=== PATIENT | female | born 1995 | race Two or more races ===

== ENCOUNTER 2018-08-22 21:10 | Emergency (ER) | payer MEDICAID ==
[~2018-08-22] VITALS: Ht 160 cm; Wt 99.8 kg
[2018-08-22] MEDS ORDERED: ALBUTEROL SULF8.5 GM INH (21:24)
[2018-08-22 21:45] VITALS: BP 128/79
--- NOTE | 2018-08-22 21:45 | NUR ---
ED Nurse Note: PATIENT AMBULATED TO ED C/O WITH FLU LIKE SYMPTOMS X2 WEEKS. FEVER AT 101.7. ERMD ON BEDSIDE. PO TYLENOL GIVEN. PT TOLERATED WELL. WILL CONTINUE TO MONITOR.
[2018-08-22] MEDS ORDERED: PREDNISONE20 MG ORAL (21:53)
[2018-08-22] MEDS ORDERED: AUGMENTIN 875-1 EAC1 ORAL (21:53)
[2018-08-22] MEDS ORDERED: IBUPROFEN600 MG ORAL (21:53)
[2018-08-22] MEDS ORDERED: PSEUDOEPHEDRINE60 MG PO (21:53)
--- NOTE | 2018-08-22 21:54 | Emergency Room Report ---
History of Present Illness General Chief Complaint: Flu Like Symptoms Source: Patient Present Illness HPI Is a 23-year-old female with a history of asthma. She presents with chief complaint of cough, headache, fever and onset for last 2 weeks. She was getting better but then spiked a fever today. No nausea no vomiting. Pain is throbbing in nature. 8 out of 10. Worse with coughing. Coughing is productive of sputum and occasional specks of blood. Nose is congested. Better with her inhaler. No other complaint. Allergies: Coded Allergies: No Known Allergies (Unverified , 08/22/18) Patient History Past Medical History: see triage record, old chart reviewed, asthma Past Surgical History: none Pertinent Family History: none Social History: Denies: smoking Last Menstrual Period: 08/12/18 Now: No Immunizations: other Reviewed Nursing Documentation: PMH: Agreed; PSxH: Agreed Nursing Documentation-PMH Past Medical History: No History, Except For Hx Asthma: Yes Review of Systems Constitutional: Reports: chills, fever, malaise Eye: Reports: nose congestion; Denies: eye pain, blurred vision ENT: Reports: throat pain; Denies: ear pain, nose congestion, throat swelling Respiratory: Reports: cough, shortness of breath Cardiovascular: Denies: chest pain, palpitations Gastrointestinal: Denies: abdominal pain, diarrhea, nausea, vomiting Musculoskeletal: Denies: back pain, joint pain Skin: Denies: rash Neurological: Denies: headache, numbness Endocrine: Denies: increased thirst, increased urine Hematologic/Lymphatic: Denies: easy bruising All Other Systems: negative except mentioned in HPI Physical Exam Vital Signs Date Time Temp Pulse Resp B/P (MAP) Pulse Ox O2 Delivery O2 Flow Rate FiO2 08/22/18 21:20 101.7 106 22 128/79 92 Room Air vitals with fever Sp02 EP Interpretation: reviewed, normal General Appearance: well appearing, no apparent distress, alert Head: normocephalic, atraumatic Eyes: bilateral eye PERRL, bilateral eye EOMI ENT: hearing grossly normal, pharyngeal erythema, other - Right TM is erythematous with meningitis. Neck: full range of motion, supple, no meningismus Respiratory: chest non-tender, lungs clear, normal breath sounds Cardiovascular #1: regular rate, rhythm, no murmur Gastrointestinal: normal bowel sounds, non tender, no mass, no organomegaly, no bruit, non-distended Musculoskeletal: back normal, gait/station normal, normal range of motion Psychiatric: mood/affect normal Skin: warm/dry Medical Decision Making Diagnostic Impression: Primary Impression: Influenza-like symptoms Additional Impressions: Otitis media, right Qualified Codes: H66.91 - Otitis media, unspecified, right ear Asthma Qualified Codes: J45.20 - Mild intermittent asthma, uncomplicated ER Course Patient with viral symptoms with possible secondary bacterial infection. She does have an otitis media. No evidence of meningitis, sepsis, pneumonia or other serious bacterial infection. We'll discharge home. Last Vital Signs Date Time Temp Pulse Resp B/P (MAP) Pulse Ox O2 Delivery O2 Flow Rate FiO2 08/22/18 21:20 101.7 106 22 128/79 92 Room Air Status: improved Disposition: HOME, SELF-CARE Condition: Stable Scripts Pseudoephedrine Hcl* (SUDAFED*) 60 Mg Tablet 60 MG PO Q6H, #30 TAB Prov: Blayne Rios MD 08/22/18 Prednisone* (PREDNISONE*) 20 Mg Tablet 40 MG ORAL DAILY, #10 TAB Prov: Blayne Rios MD 08/22/18 Ibuprofen* (MOTRIN*) 600 Mg Tablet 600 MG ORAL THREE TIMES A DAY, #30 TAB 0 Refills Prov: Blayne Rios MD 08/22/18 Amoxicillin/Potassium Clav 875-125* (AUGMENTIN 875-125 TABLET*) 1 Each Tablet 1 TAB ORAL TWICE A DAY, #14 TAB Prov: Blayne Rios MD 08/22/18 Additional Instructions: Rest. Increase fluids. Continue with your inhaler. Follow-up with your DrEthan in 3-7 days for recheck. Return if worse. Blayne Rios MD Aug 22, 2018 21:54
[2018-08-22 22:10] VITALS: BP 128/79
--- NOTE | 2018-08-22 22:10 | NUR ---
ER DISCHARGE NOTE: Patient is cleared to be discharged per ERMD, pt is aox4, on room air, with stable vital signs. pt was given dc and prescription instructions, pt was able to verbalize understanding, pt id band removed without complications. pt is able to ambulate with steady gait. pt took all belongings.
== END 2018-08-22 22:10 | disposition home or self-care (01) ==
LOC: EMR 22:00
DX: H66.91 Otitis media, unspecified, right ear (principal); R05 Cough; J45.20 Mild intermittent asthma, uncomplicated
CPT/HCPCS: 99282

== ENCOUNTER 2019-03-17 08:10 | Emergency (ER) | payer MEDICAID ==
[~2019-03-17] VITALS: Ht 160 cm; Wt 95.3 kg
[~2019-03-17 08:10] MED LIST: ALBUTEROL SULF8.5 GM INH; AUGMENTIN 875-1 EAC1 ORAL; IBUPROFEN600 MG ORAL; PREDNISONE20 MG ORAL; PSEUDOEPHEDRINE60 MG PO
[2019-03-17 08:34] VITALS: BP 113/80
--- NOTE | 2019-03-17 08:37 | Emergency Room Report ---
History of Present Illness General Chief Complaint: Eye Problems Source: Patient Present Illness HPI Patient presents with increased redness and crustiness and itching of bilateral eyes. A splint was applied by the mechanical service technician. Position was excellent and neurovascular is normal as checked by me. Worsening over the last 2 to 3 days. She is also had a sore throat that developed and a cough. She has a history of asthma and has used her inhaler last night. There is no chest pain. She denies any fevers or aches. She was seen by another doctor and he gave her prescription for saline drops. She denies any change in her vision. No chills, chest pain, palpitations, nausea, vomiting, diarrhea, dysuria, abdominal pain, joint pain, depression, anxiety, dizziness, headache. Last menstruation normal ended yesterday. Allergies: Coded Allergies: No Known Allergies (Unverified , 08/22/18) Patient History Past Medical History: see triage record, asthma Social History: Denies: smoking Social History Narrative retail Last Menstrual Period: 03/12/19 Reviewed Nursing Documentation: PMH: Agreed; PSxH: Agreed Nursing Documentation-PMH Past Medical History: No History, Except For Hx Asthma: Yes Review of Systems All Other Systems: negative except mentioned in HPI Physical Exam Vital Signs Date Time Temp Pulse Resp B/P (MAP) Pulse Ox O2 Delivery O2 Flow Rate FiO2 03/17/19 08:19 98.2 73 18 113/80 (91) 96 Room Air Sp02 EP Interpretation: reviewed, normal General Appearance: well appearing, no apparent distress, GCS 15 Head: normocephalic Eyes: bilateral eye PERRL, bilateral eye EOMI, bilateral eye Scleral Injection , bilateral eye other - beige crustiness bilat ENT: no angioedema, moist mucus membranes, pharyngeal erythema Cardiovascular #1: regular rate, rhythm Gastrointestinal: normal inspection Genitourinary: no CVA tenderness Musculoskeletal: gait/station normal Neurologic: alert, oriented x3, grossly normal Psychiatric: mood/affect normal Skin: no rash Lymphatic: other - No preauricular nodes Medical Decision Making Diagnostic Impression: Primary Impression: Conjunctivitis Qualified Codes: H10.33 - Unspecified acute conjunctivitis, bilateral Additional Impressions: URI (upper respiratory infection) Qualified Codes: J06.9 - Acute upper respiratory infection, unspecified Bronchospasm ER Course Patient presents with worsening eye irritation. Differential includes bacterial versus viral conjunctivitis. She also has sore throat with bronchospasm and mild cough. The combination of this suggests that this is a viral process. However the plan is to cover the eyes with antibiotic eyedrops along with symptomatic treatment. I warned the patient that she is contagious at this time. She feels she does not need a breathing treatment at this time and can control her bronchospasm on her own. She is stable for outpatient observation and treatment. Last Vital Signs Date Time Temp Pulse Resp B/P (MAP) Pulse Ox O2 Delivery O2 Flow Rate FiO2 03/17/19 08:34 98.2 18 113/80 96 Room Air 03/17/19 08:19 73 Status: improved Disposition: HOME, SELF-CARE Condition: Improved Scripts Naphazoline Hcl/Pheniramine (OPCON-A EYE DROPS) 15 Ml Drops 2 DROP OP Q6HR PRN for itching, #10 ML Prov: Brock Christopher MD 03/17/19 Sulfacetamide Sodium (BLEPH-10) 5 Ml Drops 2 DROP OP Q6HR, #10 ML Prov: Brock Christopher MD 03/17/19 Brock Christopher MD Mar 17, 2019 08:37
[2019-03-17] MEDS ORDERED: BLEPH-105 ML OP (08:43)
[2019-03-17] MEDS ORDERED: OPCON-A EYE DRO15 ML OP (08:43)
== END 2019-03-17 08:50 | disposition home or self-care (01) ==
LOC: EMR 08:45
DX: H10.9 Unspecified conjunctivitis (principal); J06.9 Acute upper respiratory infection, unspecified; J45.909 Unspecified asthma, uncomplicated
CPT/HCPCS: 99282

== ENCOUNTER 2019-05-01 20:44 | Emergency (ER) | payer MEDICAID ==
[~2019-05-01] VITALS: Ht 160 cm; Wt 93.0 kg
[~2019-05-01 20:44] MED LIST changes: +BLEPH-105 ML OP; +OPCON-A EYE DRO15 ML OP
[2019-05-01 20:55] VITALS: BP 120/79
--- NOTE | 2019-05-01 20:55 | NUR ---
ED Nurse Note: patient ambulated to ed c/o asthma attack x 3 week. patient reports worsening symptoms x1 week.
--- NOTE | 2019-05-01 21:16 | NUR ---
ED Nurse Note: RT AT BEDSIDE
[2019-05-01] MEDS: Albuterol ud Inhalation HHN SCH ×3 (21:24→22:03)
[2019-05-01] MEDS: Ipratropium 0.02% Inh Soln 2.5ml UD HHN SCH ×3 (21:24→22:03)
[2019-05-01] MEDS ORDERED: PREDNISONE20 MG ORAL (22:21)
[2019-05-01] MEDS ORDERED: ALBUTEROL SULF8.5 GM INH (22:21)
[2019-05-01] MEDS ORDERED: ALBUTEROL2.5 MG/3 M HHN (22:21)
--- NOTE | 2019-05-01 22:26 | NUR ---
ER DISCHARGE NOTE: Patient is cleared to be discharged per ERMD, pt is aox4, on room air, with stable vital signs. pt was given dc and prescription instructions, pt was able to verbalize understanding, pt id band removed. pt is able to ambulate with steady gait is accompanied by boyfriend. pt took all belongings.
--- NOTE | 2019-05-01 23:12 | Emergency Room Report ---
History of Present Illness General Chief Complaint: Asthma Source: Patient Present Illness HPI 24-year-old female presents ED for evaluation. Complaining of cough and wheezing x1 week. History of asthma. States cough is dry. Denies fevers or chills. States she is using her inhaler at home without significant improvement. Denies smoking. Denies sick contacts or recent travel. States her symptoms are triggered whenever the weather changes. No other aggravating relieving factors. Denies any other associated symptoms Allergies: Coded Allergies: No Known Allergies (Unverified , 08/22/18) Patient History Past Medical History: asthma Past Surgical History: none Pertinent Family History: none Social History: Denies: smoking, alcohol use, drug use Last Menstrual Period: 04/12/19 Now: No Immunizations: UTD Reviewed Nursing Documentation: PMH: Agreed; PSxH: Agreed Nursing Documentation-PMH Past Medical History: No History, Except For Hx Asthma: Yes Review of Systems All Other Systems: negative except mentioned in HPI Physical Exam Vital Signs Date Time Temp Pulse Resp B/P (MAP) Pulse Ox O2 Delivery O2 Flow Rate FiO2 05/01/19 20:48 98.8 100 14 120/79 (93) 94 Room Air 05/01/19 21:25 21 Sp02 EP Interpretation: reviewed, normal General Appearance: no apparent distress, alert, GCS 15, non-toxic Head: normocephalic Eyes: bilateral eye normal inspection, bilateral eye PERRL ENT: normal ENT inspection Neck: normal inspection Respiratory: decreased breath sounds, wheezing Cardiovascular #1: regular rate, rhythm, no edema Gastrointestinal: normal inspection Rectal: deferred Genitourinary: no CVA tenderness Musculoskeletal: normal inspection Neurologic: alert, motor strength/tone normal, oriented x3, sensory intact, responsive, speech normal Psychiatric: normal inspection Skin: no rash Lymphatic: normal inspection Medical Decision Making Diagnostic Impression: Primary Impression: Bronchitis ER Course Hospital Course 24-year-old female presents to ED complaining of cough, wheezing Differential diagnoses include: URI, bronchitis, asthma/COPD, pneumonia Clinical course Patient placed on stretcher. After initial history and physical I ordered prednisone and nebulizer treatment. Upon reassessment patient states cough and symptoms have improved. Findings consistent with bronchitis. I discussed findings with patient. Will discharge to home with prednisone, inhaler. Safe for discharge with close outpatient follow-up. States she has a PMD Diagnosis - bronchitis Stable and discharged home with prescriptions for Rx prednisone, albuterol. Instructed to followup with PMD. Return to ED if symptoms recur or worsen Last Vital Signs Date Time Temp Pulse Resp B/P (MAP) Pulse Ox O2 Delivery O2 Flow Rate FiO2 05/01/19 22:25 98.5 98 17 125/76 100 Room Air 21 Status: improved Disposition: HOME, SELF-CARE Condition: Stable Scripts Prednisone* (PREDNISONE*) 20 Mg Tablet 40 MG ORAL DAILY, #10 TAB Prov: Calos Frye MD 05/01/19 Albuterol Sulfate* (ALBUTEROL SULFATE HHN*) 2.5 Mg/3 Ml Vial.neb 2.5 MG HHN Q4H PRN for Shortness of Breath, #25 VIAL Prov: Calos Frye MD 05/01/19 Albuterol Sulfate* (ALBUTEROL SULFATE MDI*) 8.5 Gm Hfa.aer.ad 2 PUFF INH Q6H, #1 EA 0 Refills Prov: Calos Frye MD 05/01/19 Referrals: [facility]ERR[facility] (PCP) Patient Instructions: Acute Bronchitis, [id number] Calos Frye MD May 01, 2019 23:12
== END 2019-05-01 22:26 | disposition home or self-care (01) ==
LOC: EMR 21:02
DX: J20.9 Acute bronchitis, unspecified (principal)
CPT/HCPCS: 94640; J7512; Z7502; 99284

== ENCOUNTER 2019-05-17 06:56 | Emergency (ER) | payer MEDICAID ==
[~2019-05-17] VITALS: Ht 160 cm; Wt 95.3 kg
[~2019-05-17 06:56] MED LIST changes: +ALBUTEROL2.5 MG/3 M HHN
[2019-05-17 07:01] VITALS: BP 117/73
--- NOTE | 2019-05-17 07:11 | NUR ---
ED Nurse Note: PT FROM HOME CAME IN DUE TO FEVER, COUGHING AND SORE THROAT X 1 WEEK. AFEBRILE UPON TRIAGE 98.6. AAO X4, AMBULATORY WITH NON LABORED BREATHING.
[2019-05-17] MEDS ORDERED: Albuterol ud Inhalation HHN ONE (07:30)
[2019-05-17] MEDS ORDERED: Ipratropium 0.02% Inh Soln 2.5ml UD HHN ONE (07:30)
[2019-05-17] MEDS ORDERED: PROMETHAZINE-C118 M1 ORAL (08:22)
[2019-05-17] MEDS ORDERED: PREDNISONE20 MG ORAL (08:22)
[2019-05-17] MEDS ORDERED: TAMIFLU75 MG ORAL (08:22)
[2019-05-17 08:30] VITALS: BP 122/77
--- NOTE | 2019-05-17 08:30 | NUR ---
ER DISCHARGE NOTE: Patient is cleared to be discharged per ERMD, pt is aox4, on room air, with stable vital signs. pt was given dc and prescription instructions, pt was able to verbalize understanding, pt id band removed. pt is able to ambulate with steady gait. pt took all belongings and left with her family member.
--- NOTE | 2019-05-17 09:15 | Emergency Room Report ---
History of Present Illness General Chief Complaint: Flu Like Symptoms Source: Patient Present Illness HPI 24-year-old female presents ED for evaluation. Complaining of cough, congestion x3 days. Wheezing. History of asthma. Used her inhaler at home but states it did not help. Also states that she lost her voice. Denies fevers or chills. Denies sick contacts or recent travel. No other aggravating relieving factors. Denies any other associated symptoms Allergies: Coded Allergies: No Known Allergies (Unverified , 08/22/18) Patient History Past Medical History: asthma Past Surgical History: none Pertinent Family History: none Social History: Denies: smoking, alcohol use, drug use Last Menstrual Period: 05/10/19 Now: No Immunizations: UTD Reviewed Nursing Documentation: PMH: Agreed; PSxH: Agreed Nursing Documentation-PMH Past Medical History: No History, Except For Hx Asthma: Yes Review of Systems All Other Systems: negative except mentioned in HPI Physical Exam Vital Signs Date Time Temp Pulse Resp B/P (MAP) Pulse Ox O2 Delivery O2 Flow Rate FiO2 05/17/19 07:01 98.6 99 20 117/73 94 Room Air 05/17/19 07:33 21 Sp02 EP Interpretation: reviewed, normal General Appearance: no apparent distress, alert, GCS 15, non-toxic Head: normocephalic, atraumatic Eyes: bilateral eye normal inspection, bilateral eye PERRL ENT: hearing grossly normal, normal pharynx, no angioedema, normal voice Neck: full range of motion, supple/symm/no masses Respiratory: chest non-tender, speaking full sentences, wheezing Cardiovascular #1: regular rate, rhythm, no edema Cardiovascular #2: 2+ carotid (R), 2+ carotid (L), 2+ radial (R), 2+ radial (L) , 2+ dorsalis pedis (R), 2+ dorsalis pedis (L) Gastrointestinal: normal bowel sounds, non tender, soft, non-distended, no guarding, no rebound Rectal: deferred Genitourinary: normal inspection, no CVA tenderness Musculoskeletal: back normal, normal range of motion, gait/station normal, non- tender Neurologic: alert, motor strength/tone normal, oriented x3, sensory intact, responsive, speech normal Psychiatric: judgement/insight normal, memory normal, mood/affect normal, no suicidal/homicidal ideation Reflexes: 3+ bicep (R), 3+ bicep (L), 3+ tricep (R), 3+ tricep (L), 3+ knee (R) , 3+ knee (L) Skin: no rash Lymphatic: no adenopathy Medical Decision Making Diagnostic Impression: Primary Impression: Laryngitis Additional Impression: Influenza-like symptoms ER Course Hospital Course 24 yo F presents with cough, congestion, lost voice Differential diagnoses include: URI, bronchitis, pharyngitis, pneumonia Clinical course Patient placed on stretcher. After initial history physical exam reveals young female no acute distress. There is no pharyngeal erythema. No lymphadenopathy. Wheezing noted bilaterally. Bilateral TM unremarkable. Remainder of exam unremarkable. I ordered prednisone and nebulizer treatment. Upon reassessment patient states cough and symptoms have improved. I discussed findings with patient. Will discharge to home with prescription for prednisone, cough medication, Tamiflu. States she has inhaler at home. Safe for discharge with close outpatient follow-up. I will provide referrals Diagnosis - laryngitis, influenza like symptoms Stable and discharged home with prescriptions for Rx prednisone, promethazine/ codeine, tamiflu. Instructed to followup with PMD. Return to ED if symptoms recur or worsen Last Vital Signs Date Time Temp Pulse Resp B/P (MAP) Pulse Ox O2 Delivery O2 Flow Rate FiO2 05/17/19 08:30 98.0 95 15 122/77 100 Room Air 21 Status: improved Disposition: HOME, SELF-CARE Condition: Stable Scripts Oseltamivir Phosphate (Tamiflu) 75 Mg Capsule 75 MG ORAL TWICE A DAY for 5 Days, CAP Prov: Calos Frye MD 05/17/19 Prednisone* (PREDNISONE*) 20 Mg Tablet 40 MG ORAL DAILY, #10 TAB Prov: Calos Frye MD 05/17/19 Codeine/Promethazine Hcl* (PROMETHAZINE-CODEINE SYRUP*) 118 Ml Syrup 5 ML ORAL Q6H PRN for For Cough, #118 ML 0 Refills Prov: Calos Frye MD 05/17/19 Referrals: NON PHYSICIAN (PCP) Mar[facility] Patient Instructions: Laryngitis, [id number] aClos Frye MD May 17, 2019 09:15
== END 2019-05-17 08:30 | disposition home or self-care (01) ==
LOC: EMR 07:15
DX: J04.0 Acute laryngitis (principal); J11.1 Influenza due to unidentified influenza virus with other respiratory manifestations
CPT/HCPCS: J7512; Z7502; 99284

== ENCOUNTER 2019-07-25 07:15 | Emergency (ER) | payer MEDICAID ==
[~2019-07-25] VITALS: Ht 160 cm; Wt 95.3 kg
[~2019-07-25 07:15] MED LIST changes: +AMOXICILLIN500 MG ORAL; +PROMETHAZINE-C118 M1 ORAL; +TAMIFLU75 MG ORAL
[2019-07-25 07:21] VITALS: BP 130/74
--- NOTE | 2019-07-25 07:44 | Emergency Room Report ---
History of Present Illness General Chief Complaint: Asthma Source: Patient, Medical Record Present Illness HPI Patient is a 24-year-old female past medical history of asthma who presents to the ER complaining of asthma exacerbation. Patient states this is her third exacerbation during the winter season. She complains of wheezing and nonproductive cough. She denies any chest pain or shortness of breath. She denies any fever or chills. She states that the steroids helped the last time that this happened. She does have nebulizers at home which she has been using. She denies any recent travel. She denies any history of smoking. Patient denies any abdominal pain, nausea or vomiting. Patient states that she injured her left lower leg and that it is been in a walking boot and she has been walking every day. She went to [place] before coming here today for follow-up for that work related injury Allergies: Coded Allergies: No Known Allergies (Unverified , 08/22/18) Patient History Past Medical History: asthma Past Surgical History: none Social History: Denies: smoking, alcohol use, drug use Last Menstrual Period: 07/10/19 Nursing Documentation-[facility] Past Medical History: No History, Except For Hx Asthma: Yes Review of Systems All Other Systems: negative except mentioned in HPI Physical Exam Vital Signs Date Time Temp Pulse Resp B/P (MAP) Pulse Ox O2 Delivery O2 Flow Rate FiO2 07/25/19 07:21 97.9 98 14 130/74 (92) 94 Room Air Sp02 EP Interpretation: reviewed, normal General Appearance: no apparent distress, alert, GCS 15, non-toxic Head: normocephalic, atraumatic Eyes: bilateral eye normal inspection, bilateral eye PERRL ENT: hearing grossly normal, normal pharynx, no angioedema, normal voice Neck: full range of motion, supple/symm/no masses Respiratory: chest non-tender, speaking full sentences, wheezing Cardiovascular #1: regular rate, rhythm, no edema Gastrointestinal: normal bowel sounds, non tender, soft, non-distended, no guarding, no rebound Rectal: deferred Genitourinary: normal inspection, no CVA tenderness Musculoskeletal: back normal, normal range of motion, calf tenderness, other - Left lower extremity in walking boot, no calf tenderness and no swelling Neurologic: alert, motor strength/tone normal, oriented x3, sensory intact, responsive, speech normal Psychiatric: judgement/insight normal, memory normal, mood/affect normal, no suicidal/homicidal ideation Skin: no rash Lymphatic: no adenopathy Medical Decision Making Diagnostic Impression: Primary Impression: Asthma Additional Impression: Asthma attack ER Course Patient given nebulizer treatments in the emergency room as well as oral prednisone. On reexamination patient is in no acute respiratory distress. She is satting 99% on room air. Her wheezing has essentially resolved. Patient will be discharged home with prescription for albuterol as well as prednisone. She has a follow-up appointment with her primary care clinic in 2 days. After discussing risks and benefits of further diagnostics, treatment plans, as well as indications for and risks of admission, the patient is agreeable to being discharged home. I have explained that their evaluation and treatment in the emergency department today is an important step towards them achieving better health but that their evaluation today is not intended to replace further evaluation and treatment by a physician in their local clinic. I have explained that while the current findings suggest no immediate life threatening emergency they will require further evaluation and treatment by a physician of their choice in their area. They understand that it will be necessary for them to review the final reports of their ED visit with their clinic physician. We have reviewed indications for return to the Emergency Department. I have explained that additional time may need to pass and/or additional testing as an outpatient may be necessary before a definitive diagnosis can be made. They tell me they are willing to follow up as instructed within the timeframe I recommend. They appear to understand what we discussed. Additionally they understand that if they are unable to be seen by an outpatient physician they are welcome, and in fact should, return to the Emergency Department for a repeat evaluation. The patient is stable at time of discharge. Chest X-Ray Diagnostic Results Chest X-Ray Diagnostic Results : Chest X-Ray Ordered: Yes # of Views/Limited/Complete: 1 View Indication: Other - wheezing EP Interpretation: Yes Interpretation: no consolidation, no effusion, no pneumothorax, no acute cardiopulmonary disease Impression: No acute disease Last Vital Signs Date Time Temp Pulse Resp B/P (MAP) Pulse Ox O2 Delivery O2 Flow Rate FiO2 07/25/19 07:26 98 14 Room Air 07/25/19 07:21 97.9 130/74 94 Disposition: HOME, SELF-CARE Condition: Improved Scripts Prednisone (Prednisone) 20 Mg Tablet 60 MG PO DAILY for 4 Days, TAB Prov: Elly Wells M.D. 07/25/19 Albuterol Sulfate* (ALBUTEROL SULFATE HHN*) 2.5 Mg/3 Ml Vial.neb 2.5 MG HHN Q4H PRN for Shortness of Breath, #25 VIAL Prov: Elly Wells M.D. 07/25/19 Referrals: [facility] (PCP) Patient Instructions: Asthma, Adult Additional Instructions: Follow-up with your primary care physician in 2 days as scheduled Elly Wells M.D. Jul 25, 2019 07:44
[2019-07-25] MEDS ORDERED: Albuterol/Ipratropium 3ml neb HHN ONE (07:45)
[2019-07-25] MEDS ORDERED: Albuterol/Ipratropium 3ml neb HHN SCH (08:00)
[2019-07-25] MEDS ORDERED: ALBUTEROL2.5 MG/3 M HHN (08:08)
[2019-07-25] MEDS ORDERED: PREDNISONE20 M1 PO (08:08)
[2019-07-25 08:25] VITALS: BP 127/80
--- NOTE | 2019-07-25 13:58 | Diagnostic Imaging Report ---
Indication: Dyspnea Comparison: None A single view chest radiograph was obtained. Findings: Cardiomediastinal appearance is within normal limits for age. The lungs are clear. Pulmonary vascularity is appropriate. The diaphragmatic contour is smooth and costophrenic angles are sharp. No pleural effusions are identified. The bones are unremarkable. Impression: No acute findings
== END 2019-07-25 08:25 | disposition home or self-care (01) ==
LOC: EMR 07:35
DX: J45.901 Unspecified asthma with (acute) exacerbation (principal)
CPT/HCPCS: 71045; J7512; Z7502; 99284; J7620